=== PATIENT | female | born 1960 | race African-American/Black ===

== ENCOUNTER 2017-01-17 10:37 | Emergency (ER) | payer OTHER ==
[~2017-01-17] VITALS: Ht 165.1 cm; Wt 81.7 kg
[2017-01-17] MEDS ORDERED: KEFLEX500 MG PO (11:13)
[2017-01-17 11:23] VITALS: BP 120/81
== END 2017-01-17 11:36 | disposition home or self-care (01) ==
LOC: ER 10:37
DX: S91.141A Puncture wound with foreign body of right great toe without damage to nail, initial encounter (principal); F17.210 Nicotine dependence, cigarettes, uncomplicated; F10.99 Alcohol use, unspecified with unspecified alcohol-induced disorder; X58.XXXA Exposure to other specified factors, initial encounter; Y93.89 Activity, other specified; Y92.89 Other specified places as the place of occurrence of the external cause; Y99.8 Other external cause status